=== PATIENT | female | born 1980 | race Caucasian/White ===

== ENCOUNTER 2019-06-27 18:05 | Observation (INO) | payer SELFPAY ==
[~2019-06-27 18:05] MED LIST: ISOVUE-370 76%-LOCM 1 ML ONE
[2019-06-27 18:26] LABS: #Basophils 0.1 thou/uL (0.0-0.2); #Eosinphils 0.7 thou/uL (0.0-0.7); #Lymphocytes 2.3 thou/uL (1.20-3.40); #Monocytes 0.6 thou/uL (0.11-0.59); #Neutrophils 5.3 thou/uL (1.40-6.50); %Basophils 0.9 % (0.0-1.0); %Eosinophils 8.2 % (0.0-10.0); %Lymphocytes 25.4 % (21.0-51.0); %Monocytes 6.5 % (0.0-10.0); Hemoglobin 13.2 g/dL (12.0-16.0); Mean Corpuscular Hemoglobin 26.2 pg (27.0-31.0); Mean Corpuscular Volume 79.4 fL (78.0-98.0); Mean Platelet Volume 7.3 fL (7.4-10.4); Platelet Count 271 thou/uL (130-400); RBC Distribution Width 15.5 % (11.5-14.5); Red Blood Cell (RBC) Count 5.05 mill/uL (4.20-5.40); White Blood Cell (WBC) Count 8.9 thou/uL (4.8-10.8)
[2019-06-27 18:44] LABS: BHCG - Serum Negative (NEGATIVE); Pregs Control Background? CLEAR/WHITE (CLR/WHITE); Pregs Control Bar Appear? YES (CONTROL BAR)
[2019-06-27 18:49] LABS: ALT (SGPT) 9 U/L (8-55); AST (SGOT) 11 U/L (5-34); Albumin 4.1 g/dL (3.5-5.0); Alkaline Phosphatase 72 U/L (40-150); Anion Gap 13 mmol/L (10-20); BUN (Urea Nitrogen) 6 mg/dL (7.0-18.7); Bilirubin, Total 0.2 mg/dL (0.2-1.2); CK (CPK) 39 U/L (29-168); Calc. Creatinine Clearance 0 mL/min (70-130); Calcium 9.2 mg/dL (7.8-10.44); Carbon Dioxide 24 mmol/L (22-29); Chloride 106 mmol/L (98-107); Estimated GFR-MDRD Greater than 90; Globulin 2.8 g/dL (2.4-3.5); Glucose 77 mg/dL (70-105); Potassium 3.6 mmol/L (3.5-5.1); Protein, Total 6.9 g/dL (6.0-8.3); Sodium 139 mmol/L (136-145)
--- NOTE | 2019-06-27 19:45 | RAD ---
PORTABLE CHEST: 06/27/19 PROVIDED CLINICAL HISTORY: Chest pain. FINDINGS: Comparison 04/24/17. Cardiac and mediastinal silhouette is within normal limits. Lungs appear clear. No pleural fluid or p neumothorax apparent. IMPRESSION: No evidence for an acute cardiopulmonary process. POS: GIA
--- NOTE | 2019-06-27 20:07 | CT ---
CT PULMONARY ANGIOGRAM WITH IV CONTRAST WITH 3D MIP RECONSTRUCTIONS: 06/27/19 PROVIDED CLINICAL HISTORY: Tachycardia and chest pain. FINDINGS: There is no evidence for central or segmental pulmonary embolus. Heart, pericardium, and great vessel s demonstrate an unremarkable CT angiographic appearance. The lungs are free of significant opacity. No pleural fluid or pneumothorax apparent. The airway appears patent and of normal caliber. No evidence for thoracic lymph node enlargement. The visualized portions of the upper abdomen appear unremarkable. The osseous structures demonstrate no concerning lytic or blastic lesions. IMPRESSION: No evidence for central or segmental pulmonary embolus. POS: GIA
[2019-06-27 22:05] LABS: Cardiac Risk 3.5 (Less than 4.5)
[2019-06-27 22:11] LABS: Troponin I Less than 0.010 ng/mL (< 0.028)
[2019-06-27] MEDS ORDERED: Acetaminophen 325 MG TAB ONE (22:15)
[2019-06-27 23:18] VITALS: BMI 18.3
[2019-06-27] MEDS ORDERED: Acetaminophen 325 MG TAB PO PRN (23:35)
[2019-06-27] MEDS ORDERED: Aspirin 325 mg Enteric Coated Tablet PO SCH (23:45)
[2019-06-28 00:56] LABS: Troponin I Less than 0.010 ng/mL (< 0.028)
[2019-06-28] MEDS ORDERED: Ondansetron PF 4 MG/2 ML Vial IVP PRN (02:07)
[2019-06-28] MEDS ORDERED: hydrALAZINE 20 MG/ML VIAL SLOW IVP PRN (02:07)
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
[2019-06-28 02:56] LABS: Amphetamine Detected (NotDetected); Barbiturates Screen Not Detected (NotDetected); Benzodiazepine Screen Not Detected (NotDetected); Cocaine Metabolite Screen Not Detected (NotDetected); Medtox Control Line Valid? VALID (VALID); Medtox Reader # READER 1; Methadone Not Detected (NotDetected); Methamphetamine Detected (NotDetected); Opiate Screen Not Detected (NotDetected); Oxycodone Screen Not Detected (NotDetected); Phencyclidine (PCP) Not Detected (NotDetected); THC/Cannabinoid Screen Not Detected (NotDetected); Tricyclic Screen Not Detected (NotDetected)
[2019-06-28 02:57] LABS: Bacteria/HPF None Seen HPF (None Seen); Bilirubin Negative (Negative); Blood, Urine Negative (Negative); Clarity Clear (Clear); Glucose, Urine (Dipstick) Normal (Negative); Leukocyte 25 Leu/uL (Negative); Nitrite 2+ (Negative); Protein, Urine (Dipstick) Negative (Neg-Trace); RBC/HPF 0-3 HPF (0-3); Squamous Epithelial 0-3 HPF (0-3); Urobilinogen Normal mg/dL (Less than 2); WBC/HPF 0-3 HPF (0-3)
[2019-06-28 02:58] LABS: Urine Culture Reflex Yes Yes
[2019-06-28 06:13] LABS: Anion Gap 13 mmol/L (10-20); BUN (Urea Nitrogen) 10 mg/dL (7.0-18.7); Calc. Creatinine Clearance 78 mL/min (70-130); Calcium 9.6 mg/dL (7.8-10.44); Carbon Dioxide 24 mmol/L (22-29); Chloride 106 mmol/L (98-107); Estimated GFR-MDRD Greater than 90; Glucose 96 mg/dL (70-105); Potassium 3.7 mmol/L (3.5-5.1); Sodium 139 mmol/L (136-145)
[2019-06-28] MEDS: Enoxaparin Sodium 40 MG/0.4 ML SYRINGE SC SCH ×2 (08:26→11:08)
[2019-06-28] MEDS: Famotidine 20 MG TAB PO SCH ×3 (08:27→20:36)
[2019-06-28 09:04] LABS: #Basophils 0.1 thou/uL (0.0-0.2); #Eosinphils 0.7 thou/uL (0.0-0.7); #Lymphocytes 2.1 thou/uL (1.20-3.40); #Monocytes 0.5 thou/uL (0.11-0.59); #Neutrophils 4.5 thou/uL (1.40-6.50); %Basophils 0.8 % (0.0-1.0); %Eosinophils 8.9 % (0.0-10.0); %Lymphocytes 26.5 % (21.0-51.0); %Monocytes 5.9 % (0.0-10.0); %Neutrophils 57.8 % (42.0-75.0); Hemoglobin 12.9 g/dL (12.0-16.0); Mean Corpuscular HGB CONC 33.3 g/dL (32.0-36.0); Mean Corpuscular Hemoglobin 26.6 pg (27.0-31.0); Mean Corpuscular Volume 79.9 fL (78.0-98.0); Mean Platelet Volume 7.5 fL (7.4-10.4); Platelet Count 257 thou/uL (130-400); RBC Distribution Width 15.3 % (11.5-14.5); Red Blood Cell (RBC) Count 4.85 mill/uL (4.20-5.40); White Blood Cell (WBC) Count 7.8 thou/uL (4.8-10.8)
[2019-06-28 09:22] LABS: ALT (SGPT) Less than 7 U/L (8-55); AST (SGOT) 13 U/L (5-34); Albumin 3.9 g/dL (3.5-5.0); Alkaline Phosphatase 71 U/L (40-150); Anion Gap 12 mmol/L (10-20); BUN (Urea Nitrogen) 10 mg/dL (7.0-18.7); Bilirubin, Total Less than 0.2 mg/dL (0.2-1.2); Calc. Creatinine Clearance 77 mL/min (70-130); Calcium 9.1 mg/dL (7.8-10.44); Carbon Dioxide 25 mmol/L (22-29); Chloride 106 mmol/L (98-107); Estimated GFR-MDRD Greater than 90; Globulin 2.7 g/dL (2.4-3.5); Glucose 102 mg/dL (70-105); Potassium 3.8 mmol/L (3.5-5.1); Protein, Total 6.6 g/dL (6.0-8.3); Sodium 139 mmol/L (136-145)
--- NOTE | 2019-06-28 12:37 | PDOC.HOSPP ---
- Subjective Encounter Date: 06/28/19 Encounter Time: 10:30 Subjective: Patient examined, reports intermittent sharp chest pain throughout the night, denies new complaints - Objective Vital Signs & Weight: Vital Signs (12 hours) Temp Pulse Resp BP Pulse Ox 06/28/19 08:00 98.4 F 77 16 104/67 100 06/28/19 03:37 98.3 F 69 18 106/56 L 99 Weight Weight 45.541 kg I&O: 06/27/19 06/28/19 06/29/19 06:59 06:59 06:59 Intake Total 240 Output Total 700 Balance -460 Result Diagrams: 06/28/19 08:32 06/28/19 08:32 ROS - Review of Systems Cardiovascular: reports: chest pain - Medication Medications: Active Medications Generic Name Dose Route Start Last Admin Trade Name Freq PRN Reason Stop Dose Admin Enoxaparin Sodium 40 mg 06/28/19 09:00 06/28/19 11:08 Lovenox SC 40 mg 0900 NICO Administration Famotidine 20 mg 06/28/19 09:00 06/28/19 11:08 Pepcid PO 20 mg BID NICO Administration - Exam Eye: PERRL ENT: moist mucosa ENT - other findings: poor dentition Neck: supple Heart: RRR Respiratory: CTAB Gastrointestinal: soft, non-tender Extremities: no edema Skin: normal turgor Neurological: CN's grossly intact Musculoskeletal: normal tone Psychiatric: normal affect, A&O x 3 Hosp A/P (1) Chest pain Code(s): R07.9 - CHEST PAIN, UNSPECIFIED Status: Acute (2) GERD (gastroesophageal reflux disease) Code(s): K21.9 - GASTRO-ESOPHAGEAL REFLUX DISEASE WITHOUT ESOPHAGITIS Status: Chronic (3) Hx of valvular heart disease Code(s): Z86.79 - PERSONAL HISTORY OF OTHER DISEASES OF THE CIRCULATORY SYSTEM Status: Chronic (4) Drug abuse Code(s): F19.10 - OTHER PSYCHOACTIVE SUBSTANCE ABUSE, UNCOMPLICATED Status: Acute - Plan Echocardiogram today May need cardiology consult if Echo abnormal, patient reports hx of valvular d/o , was told 7 years ago she needed a replacement Smoking and drug abuse counseling given Will repeat labs in AM Will discuss with Dr. Potter for further recommendations
[2019-06-28] MEDS: Nitrofurantoin Monohyd/M-Cryst 100 MG CAP PO SCH (20:36)
[2019-06-29 04:47] LABS: #Basophils 0.1 thou/uL (0.0-0.2); #Eosinphils 0.6 thou/uL (0.0-0.7); #Lymphocytes 2.4 thou/uL (1.20-3.40); #Monocytes 0.6 thou/uL (0.11-0.59); #Neutrophils 5.7 thou/uL (1.40-6.50); %Eosinophils 6.3 % (0.0-10.0); %Lymphocytes 25.8 % (21.0-51.0); %Monocytes 5.8 % (0.0-10.0); %Neutrophils 61.1 % (42.0-75.0); Hemoglobin 13.3 g/dL (12.0-16.0); Mean Corpuscular Hemoglobin 26.5 pg (27.0-31.0); Mean Corpuscular Volume 80.3 fL (78.0-98.0); Mean Platelet Volume 7.5 fL (7.4-10.4); Platelet Count 267 thou/uL (130-400); RBC Distribution Width 15.1 % (11.5-14.5); Red Blood Cell (RBC) Count 5.01 mill/uL (4.20-5.40); White Blood Cell (WBC) Count 9.4 thou/uL (4.8-10.8)
[2019-06-29 05:18] LABS: ALT (SGPT) Less than 7 U/L (8-55); AST (SGOT) 12 U/L (5-34); Alkaline Phosphatase 70 U/L (40-150); Anion Gap 11 mmol/L (10-20); BUN (Urea Nitrogen) 9 mg/dL (7.0-18.7); Bilirubin, Total 0.2 mg/dL (0.2-1.2); Calc. Creatinine Clearance 78 mL/min (70-130); Calcium 9.3 mg/dL (7.8-10.44); Carbon Dioxide 25 mmol/L (22-29); Chloride 106 mmol/L (98-107); Estimated GFR-MDRD Greater than 90; Globulin 2.7 g/dL (2.4-3.5); Glucose 99 mg/dL (70-105); Potassium 4.3 mmol/L (3.5-5.1); Protein, Total 6.7 g/dL (6.0-8.3); Sodium 138 mmol/L (136-145)
[2019-06-29 07:40] VITALS: BP 111/65; TEMP 97.7
[2019-06-29] MEDS: Famotidine 20 MG TAB PO SCH (08:56)
[2019-06-29] MEDS: Nitrofurantoin Monohyd/M-Cryst 100 MG CAP PO SCH (08:56)
[2019-06-29] MEDS: Enoxaparin Sodium 40 MG/0.4 ML SYRINGE SC SCH (08:56)
== END 2019-06-29 11:21 | disposition home or self-care (01) ==
LOC: ERS 18:05 → 2SW 20:25
PROVIDERS: ADMIT Family Medicine; ATTEND Family Medicine
DX: R07.89 Other chest pain (principal); I38 Endocarditis, valve unspecified; I51.7 Cardiomegaly; I10 Essential (primary) hypertension; F17.210 Nicotine dependence, cigarettes, uncomplicated; Z88.0 Allergy status to penicillin; Z91.5 Personal history of self-harm
CPT/HCPCS: 36415; 71045; 71275; 80048; 80053; 80061; 80306; 81001; 82550; 84484; 84703; 85025; 87077; 87086; 87186; 93005; 93306; 96372; G0378; J1650; Q9966

== ENCOUNTER 2019-11-12 01:04 | Inpatient (IN) | payer SELFPAY ==
[2019-11-12] MEDS ORDERED: Ondansetron PF 4 MG/2 ML Vial ONE (01:16)
[2019-11-12 01:31] LABS: #Basophils 0.1 thou/uL (0.0-0.2); #Eosinphils 0.6 thou/uL (0.0-0.7); #Lymphocytes 2.9 thou/uL (1.20-3.40); #Monocytes 0.8 thou/uL (0.11-0.59); #Neutrophils 7.9 thou/uL (1.40-6.50); %Eosinophils 5.1 % (0.0-10.0); %Lymphocytes 23.6 % (21.0-51.0); %Monocytes 6.1 % (0.0-10.0); %Neutrophils 64.3 % (42.0-75.0); Hemoglobin 12.4 g/dL (12.0-16.0); Mean Corpuscular HGB CONC 33.4 g/dL (32.0-36.0); Mean Corpuscular Hemoglobin 26.6 pg (27.0-31.0); Mean Corpuscular Volume 79.5 fL (78.0-98.0); Mean Platelet Volume 7.2 fL (7.4-10.4); Platelet Count 283 thou/uL (130-400); RBC Distribution Width 15.2 % (11.5-14.5); Red Blood Cell (RBC) Count 4.67 mill/uL (4.20-5.40); White Blood Cell (WBC) Count 12.2 thou/uL (4.8-10.8)
[2019-11-12 01:38] LABS: BHCG - Serum Negative (NEGATIVE); Pregs Control Background? CLEAR/WHITE (CLR/WHITE); Pregs Control Bar Appear? YES (CONTROL BAR)
[2019-11-12 01:53] LABS: ALT (SGPT) 38 U/L (8-55); AST (SGOT) 76 U/L (5-34); Albumin 4.1 g/dL (3.5-5.0); Alkaline Phosphatase 95 U/L (40-110); Anion Gap 12 mmol/L (10-20); BUN (Urea Nitrogen) 16 mg/dL (7.0-18.7); Bilirubin, Total Less than 0.2 mg/dL (0.2-1.2); Calc. Creatinine Clearance 0 mL/min (70-130); Carbon Dioxide 30 mmol/L (22-29); Chloride 107 mmol/L (98-107); Estimated GFR-MDRD 48; Globulin 2.8 g/dL (2.4-3.5); Glucose 110 mg/dL (70-105); Potassium 4.2 mmol/L (3.5-5.1); Protein, Total 6.9 g/dL (6.0-8.3); Sodium 145 mmol/L (136-145)
[2019-11-12 02:14] LABS: CKMB 2.4 ng/mL (0-6.6)
[2019-11-12 02:39] LABS: Amphetamine Detected (NotDetected); Barbiturates Screen Not Detected (NotDetected); Benzodiazepine Screen Not Detected (NotDetected); Bilirubin Negative (Negative); Blood, Urine Negative (Negative); Clarity Turbid (Clear); Cocaine Metabolite Screen Not Detected (NotDetected); Glucose, Urine (Dipstick) Normal (Negative); Leukocyte 25 Leu/uL (Negative); Medtox Control Line Valid? VALID (VALID); Medtox Reader # READER 4; Methadone Not Detected (NotDetected); Methamphetamine Detected (NotDetected); Nitrite 2+ (Negative); Opiate Screen Not Detected (NotDetected); Oxycodone Screen Not Detected (NotDetected); Phencyclidine (PCP) Not Detected (NotDetected); Protein, Urine (Dipstick) 30 mg/dL (Neg-Trace); RBC/HPF 0-3 HPF (0-3); Squamous Epithelial 0-3 HPF (0-3); THC/Cannabinoid Screen Detected (NotDetected); Tricyclic Screen Not Detected (NotDetected); Urobilinogen Normal mg/dL (Less than 2); WBC/HPF 21-50 HPF (0-3)
[2019-11-12 02:40] LABS: Bacteria/HPF 1+ HPF (None Seen)
[2019-11-12] MEDS ORDERED: Ketorolac Tromethamine 30 MG/ML VIAL ONE (02:47)
[2019-11-12] MEDS ORDERED: Aspirin 325 MG TAB ONE (02:47)
[2019-11-12] MEDS ORDERED: Bisacodyl 10 MG SUPP PR PRN (03:32)
[2019-11-12] MEDS ORDERED: Acetaminophen 325 MG TAB PO PRN (03:32)
[2019-11-12] MEDS ORDERED: Sodium Chloride 0.9% 1,000 ML IV SCH (03:32)
[2019-11-12] MEDS ORDERED: Senokot S 8.6-50 MG TAB PO PRN (03:32)
[2019-11-12] MEDS ORDERED: Guaifenesin DM 100-10/5 ML UDCUP PO PRN (03:32)
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
[2019-11-12 05:12] LABS: Troponin I 0.318 ng/mL (< 0.028)
[2019-11-12] MEDS: Nitroglycerin 2% Ointment 1 INCH/1 GM Packet TOP SCH ×2 (05:55→14:08)
[2019-11-12] MEDS ORDERED: Ciprofloxacin 500 MG TAB ONE (05:57)
[2019-11-12] MEDS: Ciprofloxacin 500 MG TAB PO SCH ×2 (06:00→20:43)
--- NOTE | 2019-11-12 07:35 | RAD ---
EXAM: Single view of the chest HISTORY: Chest pain COMPARISON: 06/27/2019 FINDINGS: Single view of the chest shows a normal sized cardiomediastinal silhouette. There is no alexander dence of consolidation, mass, or pleural effusion. There is a healed right posterior rib fracture. IMPRESSION: No evidence of acute cardiopulmonary disease
[2019-11-12 08:01] LABS: Troponin I 0.271 ng/mL (< 0.028)
[2019-11-12] MEDS ORDERED: Aspirin Chewable 81 MG TAB ONE (08:22)
[2019-11-12] MEDS ORDERED: Famotidine 20 MG TAB ONE (08:22)
[2019-11-12] MEDS ORDERED: Enoxaparin Sodium 40 MG/0.4 ML SYRINGE ONE (08:22)
[2019-11-12] MEDS: Famotidine 20 MG TAB PO SCH ×2 (08:47→20:43)
[2019-11-12] MEDS: Aspirin Chewable 81 MG TAB PO SCH (08:48)
[2019-11-12] MEDS: Enoxaparin Sodium 40 MG/0.4 ML SYRINGE SC SCH (08:49)
[2019-11-12 14:32] VITALS: BMI 18.5
--- NOTE | 2019-11-13 01:38 | CON ---
DATE OF CONSULTATION: 11/12/2019 REASON FOR CONSULTATION: Supraventricular tachycardia. HISTORY OF PRESENT ILLNESS: Ms. Jarvis is a 38-year-old woman. She has been having episodes of tachycardia since age 24. This has happened on multiple occasions. She has had to go to the hospital on multiple occasions and call an ambulance because the rates go so fast, when she tried to take her pulses it is so fast she cannot count it. She has a home blood pressure cuffs, she said it is going so fast it will not register; in an ambulance even an oximeter would not count the number of beats, they are so fast. She has had received medication multiple times en route in an ambulance, apparently adenosine, they converted to normal rhythm. She instantly feels much better. At times, she can rub on her neck and it will convert it or bear down and sometimes it will convert it, but other times, she will not convert, she has to come to the hospital. The patient states that yesterday she had it almost 10 hours before she finally came to the emergency room. It lasted so long. She actually had an increased troponin. The patient otherwise has been in fair condition. Unfortunately, she has had tested multiple times positive for methamphetamines. ALLERGIES: TO PENICILLIN. SOCIAL HISTORY: History of methamphetamine and amphetamine abuse. PHYSICAL EXAMINATION: GENERAL: This is an underweight 38-year-old woman with extremely poor dentition. VITAL SIGNS: Blood pressure is 109/69, pulse 72 and regular. LUNGS: Clear. CARDIAC: Normal S1, normal S2. ABDOMEN: Soft and nontender. EXTREMITIES: Warm and dry. No clubbing or cyanosis. No edema. DIAGNOSTIC STUDIES: EKG now is unremarkable. Recent echocardiogram showed normal left ventricular function, normal echocardiogram. ASSESSMENT: 1. Symptoms typical of supraventricular tachycardia, probably AV juan carlos reentry terminates with vagal maneuvers. By her report, also terminates with medicine given in an ambulance, probably adenosine. 2. History of methamphetamine abuse. PLAN: Discussed with Dr. Medina. Consideration for keep her in the hospital, doing an ablation, she has these episodes frequently. They are incapacitating. Job ID: [id number]
[2019-11-13 05:10] LABS: #Basophils 0.1 thou/uL (0.0-0.2); #Eosinphils 0.6 thou/uL (0.0-0.7); #Lymphocytes 1.9 thou/uL (1.20-3.40); #Monocytes 0.8 thou/uL (0.11-0.59); #Neutrophils 7.4 thou/uL (1.40-6.50); %Basophils 0.8 % (0.0-1.0); %Eosinophils 5.9 % (0.0-10.0); %Lymphocytes 17.6 % (21.0-51.0); %Monocytes 7.2 % (0.0-10.0); %Neutrophils 68.5 % (42.0-75.0); Hemoglobin 10.7 g/dL (12.0-16.0); Mean Corpuscular HGB CONC 31.6 g/dL (32.0-36.0); Mean Corpuscular Hemoglobin 25.4 pg (27.0-31.0); Mean Corpuscular Volume 80.4 fL (78.0-98.0); Mean Platelet Volume 7.7 fL (7.4-10.4); Platelet Count 241 thou/uL (130-400); RBC Distribution Width 15.6 % (11.5-14.5); Red Blood Cell (RBC) Count 4.21 mill/uL (4.20-5.40); White Blood Cell (WBC) Count 10.8 thou/uL (4.8-10.8)
[2019-11-13 05:25] LABS: Anion Gap 8 mmol/L (10-20); BUN (Urea Nitrogen) 12 mg/dL (7.0-18.7); Calc. Creatinine Clearance 85 mL/min (70-130); Carbon Dioxide 27 mmol/L (22-29); Chloride 108 mmol/L (98-107); Estimated GFR-MDRD Greater than 90; Glucose 110 mg/dL (70-105); Sodium 139 mmol/L (136-145)
[2019-11-13 05:31] LABS: Troponin I 0.057 ng/mL (< 0.028)
[2019-11-13] MEDS: Ciprofloxacin 500 MG TAB PO SCH ×2 (06:07→20:42)
[2019-11-13] MEDS: Famotidine 20 MG TAB PO SCH ×2 (08:13→20:42)
[2019-11-13] MEDS: Enoxaparin Sodium 40 MG/0.4 ML SYRINGE SC SCH (08:13)
[2019-11-13] MEDS: Aspirin Chewable 81 MG TAB PO SCH (08:13)
[2019-11-13] MEDS ORDERED: FLU VACC QS2019-20(6MOS UP)/PF 60 MCG/0.5 ML SYRINGE IM ONE (09:00)
--- NOTE | 2019-11-13 14:36 | PDOC.HOSPP ---
- Subjective Encounter Date: 11/13/19 Encounter Time: 14:34 Subjective: Patient feeling well. Denies any complaints. She feels tired but has been up and walking without any sob or chest pain. Per RN frequently going outside to smoke. Patient states she was seen by Dr. Medina this morning and told she would undergo ablation tomorrow. - Objective Vital Signs & Weight: Vital Signs (12 hours) Temp Pulse Resp BP Pulse Ox 11/13/19 08:05 100 11/13/19 07:26 97.7 F 78 20 103/58 L 100 11/13/19 02:59 98 F 77 16 106/59 L 97 Weight Admit Weight 101 lb 3.2 oz Weight 101 lb 3.2 oz I&O: 11/12/19 11/13/19 11/14/19 06:59 06:59 06:59 Intake Total 1242 480 Output Total 1475 Balance -233 480 Result Diagrams: 11/13/19 04:41 11/13/19 04:41 Hospitalist ROS - Review of Systems Constitutional: denies: fever, chills, sweats, weakness, malaise Eyes: denies: pain, vision change, conjunctivae inflammation, eyelid inflammation, redness, other ENT: denies: ear pain, ear discharge, nose pain, nose discharge, nose congestion , mouth pain, mouth swelling, throat pain, throat swelling, other Respiratory: denies: cough, dry, shortness of breath, hemoptysis, SOB with excertion, pleuritic pain, sputum, wheezing, other Cardiovascular: denies: chest pain, palpitations, orthopnea, paroxysmal noc. dyspnea, edema, light headedness, other Gastrointestinal: denies: nausea, vomiting, abdominal pain, diarrhea, constipation, melena, hematochezia, other Genitourinary: denies: dysuria, frequency, incontinence, hematuria, retention, other Musculoskeletal: denies: neck pain, shoulder pain, arm pain, back pain, hand pain, leg pain, foot pain, other Skin: denies: rash, lesions, quin[place], bruising, other Neurological: denies: weakness, numbness, incoordination, change in speech, confusion, seizures, other - Medication Medications: Active Medications Generic Name Dose Route Start Last Admin Trade Name Freq PRN Reason Stop Dose Admin Aspirin 81 mg 11/12/19 09:00 11/13/19 08:13 Aspirin Chewable PO 81 mg DAILY NICO Administration Ciprofloxacin 500 mg 11/12/19 06:00 11/13/19 06:07 Cipro PO 500 mg [id number] [facility] Administration Enoxaparin Sodium 40 mg 11/12/19 09:00 11/13/19 08:13 Lovenox SC 40 mg 0900 NICO Administration Famotidine 20 mg 11/12/19 09:00 11/13/19 08:13 Pepcid PO 20 mg BID NICO Administration - Exam General Appearance: NAD, awake alert Eye: PERRL, anicteric sclera ENT: normocephalic atraumatic ENT - other findings: poor dentition Neck: supple, symmetric, no lymphadenopathy Heart: RRR, no murmur, no gallops, no rubs Respiratory: CTAB, no wheezes, no rales, no ronchi Gastrointestinal: soft, non-tender, non-distended, normal bowel sounds, no guarding, no rigidity Extremities: no cyanosis, no clubbing, no edema Skin: normal turgor, no lesions, no rashes Neurological: cranial nerve grossly intact Musculoskeletal: normal tone, normal strength, no muscle wasting Psychiatric: normal affect, A&O x 3 Hosp A/P (1) SVT (supraventricular tachycardia) Code(s): I47.1 - SUPRAVENTRICULAR TACHYCARDIA Status: Acute (2) Drug abuse Code(s): F19.10 - OTHER PSYCHOACTIVE SUBSTANCE ABUSE, UNCOMPLICATED Status: Chronic (3) GERD (gastroesophageal reflux disease) Code(s): K21.9 - GASTRO-ESOPHAGEAL REFLUX DISEASE WITHOUT ESOPHAGITIS Status: Chronic (4) Hx of valvular heart disease Code(s): Z86.79 - PERSONAL HISTORY OF OTHER DISEASES OF THE CIRCULATORY SYSTEM Status: Chronic - Plan Chest pain resolved. No palpitations at present. Seen by Dr. Medina and for possible ablation tomorrow. Cardiology following as well. Continue cardiac monitoring.
[2019-11-14] MEDS: Ciprofloxacin 500 MG TAB PO SCH ×2 (04:56→19:36)
[2019-11-14 05:35] LABS: #Basophils 0.1 thou/uL (0.0-0.2); #Eosinphils 0.8 thou/uL (0.0-0.7); #Lymphocytes 2.2 thou/uL (1.20-3.40); #Monocytes 0.8 thou/uL (0.11-0.59); #Neutrophils 7.5 thou/uL (1.40-6.50); %Basophils 0.8 % (0.0-1.0); %Eosinophils 7.3 % (0.0-10.0); %Lymphocytes 18.9 % (21.0-51.0); %Monocytes 7.4 % (0.0-10.0); %Neutrophils 65.6 % (42.0-75.0); Mean Corpuscular HGB CONC 31.9 g/dL (32.0-36.0); Mean Corpuscular Hemoglobin 25.7 pg (27.0-31.0); Mean Corpuscular Volume 80.5 fL (78.0-98.0); Mean Platelet Volume 7.9 fL (7.4-10.4); Platelet Count 262 thou/uL (130-400); RBC Distribution Width 15.5 % (11.5-14.5); Red Blood Cell (RBC) Count 4.69 mill/uL (4.20-5.40); White Blood Cell (WBC) Count 11.4 thou/uL (4.8-10.8)
[2019-11-14 05:51] LABS: Anion Gap 9 mmol/L (10-20); BUN (Urea Nitrogen) 16 mg/dL (7.0-18.7); Calc. Creatinine Clearance 78 mL/min (70-130); Calcium 8.9 mg/dL (7.8-10.44); Carbon Dioxide 29 mmol/L (22-29); Chloride 106 mmol/L (98-107); Estimated GFR-MDRD Greater than 90; Glucose 108 mg/dL (70-105); Potassium 4.1 mmol/L (3.5-5.1); Sodium 140 mmol/L (136-145)
[2019-11-14 05:56] LABS: Troponin I 0.041 ng/mL (< 0.028)
[2019-11-14] MEDS: Enoxaparin Sodium 40 MG/0.4 ML SYRINGE SC SCH (08:30)
[2019-11-14] MEDS: Famotidine 20 MG TAB PO SCH ×2 (08:46→19:36)
[2019-11-14] MEDS: Aspirin Chewable 81 MG TAB PO SCH (08:46)
--- NOTE | 2019-11-14 11:24 | PDOC.HOSPP ---
- Subjective Encounter Date: 11/14/19 Encounter Time: 07:10 Subjective: Patient seen and examined. No new complaints. No overnight events - Objective Vital Signs & Weight: Vital Signs (12 hours) Temp Pulse Resp BP Pulse Ox 11/14/19 07:41 98 F 77 20 106/52 L 99 11/14/19 04:45 97.7 F 74 16 108/57 L 98 Weight Admit Weight 101 lb 3.2 oz Weight 101 lb 3.2 oz I&O: 11/13/19 11/14/19 11/15/19 06:59 06:59 06:59 Intake Total 1242 720 Output Total 1475 1000 Balance -233 -280 Result Diagrams: 11/14/19 04:59 11/14/19 04:59 Radiology Reviewed by me: Yes EKG Reviewed by me: Yes Hospitalist ROS - Review of Systems Eyes: denies: pain, vision change, conjunctivae inflammation, eyelid inflammation, redness, other ENT: denies: ear pain, ear discharge, nose pain, nose discharge, nose congestion , mouth pain, mouth swelling, throat pain, throat swelling, other Respiratory: denies: cough, dry, shortness of breath, hemoptysis, SOB with excertion, pleuritic pain, sputum, wheezing, other Cardiovascular: denies: chest pain, palpitations, orthopnea, paroxysmal noc. dyspnea, edema, light headedness, other Gastrointestinal: denies: nausea, vomiting, abdominal pain, diarrhea, constipation, melena, hematochezia, other Genitourinary: denies: dysuria, frequency, incontinence, hematuria, retention, other Musculoskeletal: denies: neck pain, shoulder pain, arm pain, back pain, hand pain, leg pain, foot pain, other - Medication Medications: Active Medications Generic Name Dose Route Start Last Admin Trade Name Freq PRN Reason Stop Dose Admin Aspirin 81 mg 11/12/19 09:00 11/14/19 08:46 Aspirin Chewable PO 81 mg DAILY [facility] Administration Ciprofloxacin 500 mg 11/12/19 06:00 11/14/19 04:56 Cipro PO 500 mg [facility] Administration Enoxaparin Sodium 40 mg 11/12/19 09:00 11/14/19 08:30 Lovenox SC Not Given 899 [facility] Famotidine 20 mg 11/12/19 09:00 11/14/19 08:46 Pepcid PO 20 mg BID NICO Administration - Exam General Appearance: NAD, awake alert Eye: PERRL, anicteric sclera ENT: normocephalic atraumatic, no oropharyngeal lesions Neck: supple, symmetric, no JVD, no thyromegaly Heart: RRR, no murmur, no gallops, no rubs Respiratory: CTAB, no wheezes, no rales Gastrointestinal: soft, non-tender, non-distended, normal bowel sounds Extremities: no cyanosis, no clubbing Skin: normal turgor, no lesions Neurological: no focal deficits Musculoskeletal: normal tone, normal strength Psychiatric: normal affect, normal behavior Hosp A/P (1) Chest pain Code(s): R07.9 - CHEST PAIN, UNSPECIFIED Status: Resolved (2) SVT (supraventricular tachycardia) Code(s): I47.1 - SUPRAVENTRICULAR TACHYCARDIA Status: Acute (3) Type [address] elevation Code(s): I21.A1 - MYOCARDIAL INFARCTION TYPE 2 Status: Acute (4) Polysubstance abuse Code(s): F19.10 - OTHER PSYCHOACTIVE SUBSTANCE ABUSE, UNCOMPLICATED Status: Chronic (5) GERD (gastroesophageal reflux disease) Code(s): K21.9 - GASTRO-ESOPHAGEAL REFLUX DISEASE WITHOUT ESOPHAGITIS Status: Chronic - Plan old records reviewed/req 11/14/19 today possible ablation procedure medication reviewed and continue to provide symptomatic treatment
[2019-11-15] MEDS: Ciprofloxacin 500 MG TAB PO SCH ×2 (05:18→20:52)
[2019-11-15 05:41] LABS: #Basophils 0.1 thou/uL (0.0-0.2); #Lymphocytes 2.5 thou/uL (1.20-3.40); #Neutrophils 7.2 thou/uL (1.40-6.50); %Eosinophils 8.1 % (0.0-10.0); %Lymphocytes 21.5 % (21.0-51.0); %Monocytes 8.1 % (0.0-10.0); %Neutrophils 61.3 % (42.0-75.0); Hemoglobin 12.2 g/dL (12.0-16.0); Mean Corpuscular HGB CONC 31.7 g/dL (32.0-36.0); Mean Corpuscular Hemoglobin 24.9 pg (27.0-31.0); Mean Corpuscular Volume 78.6 fL (78.0-98.0); Mean Platelet Volume 7.9 fL (7.4-10.4); Platelet Count 258 thou/uL (130-400); RBC Distribution Width 15.4 % (11.5-14.5); Red Blood Cell (RBC) Count 4.89 mill/uL (4.20-5.40); White Blood Cell (WBC) Count 11.8 thou/uL (4.8-10.8)
[2019-11-15 06:03] LABS: Anion Gap 13 mmol/L (10-20); BUN (Urea Nitrogen) 15 mg/dL (7.0-18.7); Calc. Creatinine Clearance 75 mL/min (70-130); Calcium 9.1 mg/dL (7.8-10.44); Carbon Dioxide 24 mmol/L (22-29); Chloride 104 mmol/L (98-107); Estimated GFR-MDRD 89; Glucose 99 mg/dL (70-105); Sodium 137 mmol/L (136-145)
[2019-11-15] MEDS: Famotidine 20 MG TAB PO SCH ×2 (07:53→20:52)
[2019-11-15] MEDS: Aspirin Chewable 81 MG TAB PO SCH (07:54)
[2019-11-15] MEDS: Enoxaparin Sodium 40 MG/0.4 ML SYRINGE SC SCH (07:54)
--- NOTE | 2019-11-15 12:13 | PDOC.EP ---
- Subjective Date: 11/15/19 Time: 09:00 Interval History: follow up for recurrent SVT. No further events since Tuesday. Pt feels well. - Review of Systems Constitutional: denies: chills, fever, malaise, sweats, weakness, other Respiratory: denies: cough, dry, hemoptysis, pleuritic pain, shortness of breath , SOB with excertion, sputum, wheezing, other Cardiology: denies: chest pain, edema, heart racing, light headedness, paroxysmal noc. dyspnea, orthopnea, palpitations, passing out, pleuritic pain, pressure, swelling, other Gastrointestinal: denies: abdominal pain, constipation, diarrhea, hematochezia, melena, nausea, vomitting, other Musculoskeletal: denies: unstable gait, falls, neck pain, shoulder pain, arm pain, hand pain, leg pain, foot pain, other Neurological: denies: headache, vision changes, other - Objective Allergies/Adverse Reactions: Allergies Allergy/AdvReac Type Severity Reaction Status Date / Time Penicillins Allergy Verified 11/12/19 13:57 Current Medications Acetaminophen (Tylenol) 650 mg PO Q4H PRN PRN Reason: Headache/Fever/Mild Pain (1-3) Albuterol/Ipratropium (Duoneb) 3 ml NEB [id number] PRN PRN Reason: SOB &/or Wheezing Aspirin (Aspirin Chewable) 81 mg PO DAILY [facility] Last Admin: 11/15/19 07:54 Dose: 81 mg Bisacodyl (Dulcolax) 10 mg TX DAILYPRN PRN PRN Reason: Constipation Ciprofloxacin (Cipro) 500 mg PO 0600,1999 [facility] Last Admin: 11/15/19 05:18 Dose: 500 mg Enoxaparin Sodium (Lovenox) 40 mg SC 0900 [facility] Last Admin: 11/15/19 07:54 Dose: 40 mg Famotidine (Pepcid) 20 mg PO BID [facility] Last Admin: 11/15/19 07:53 Dose: 20 mg Guaifenesin/Dextromethorphan (Robitussin Dm) 15 ml PO Q4H PRN PRN Reason: Cough Senna/Docusate Sodium (Senokot S) 2 tab PO BIDPRN PRN PRN Reason: Constipation Sodium Chloride (Flush - Normal Saline) 10 ml IVF PRN PRN PRN Reason: Saline Flush Vital Signs & Weight: Vital Signs Temp Pulse Resp BP Pulse Ox 11/15/19 11:49 97.3 F L 101 H 20 127/62 100 11/15/19 07:20 98.6 F 81 16 98/54 L 100 11/15/19 05:22 98.0 F 75 16 110/56 L 98 Admit Weight 101 lb 3.2 oz Weight 101 lb 3.2 oz I/O: I/O 11/14/19 11/15/19 11/16/19 06:59 06:59 06:59 Intake Total 720 200 Output Total 1000 Balance -280 200 - Physical Exam General: alert & oriented x3, appears well, no apparent distress, speech clear, affect appropriate HEENT: mucus membranes moist, normocephaly, other (poor dentition) Neck: supple neck, midline trachea, no JVD/HJR, no masses, no bruit, no lymphadenopathy, no thromegaly Cardiology: regular rate and rhythm, no murmur, regular rate, regular rhythm, PMI nondisplaced Lungs: clear to auscultation, normal breath sounds, normal exam, no wheeze, rales, rhonchi, no wheezes, no rales, no rhonchi Neurology: cranial nerve 2-12 intact, grossly intact, motor function intact, sensory function intact, negative rhomberg, coordination normal, no lateralizing findings - Labs Result Diagrams: 11/15/19 05:28 11/15/19 05:28 - EKG Interpretation EKG Method: Telemetry EKG shows: Sinus rhythm - Assessment/Plan Assessment/Plan: 1. 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 History of drug abuse 3. Tobacco habituation, ongoing - recommended she stop. Plan for EP study with possible ablation for SVT tomorrow around noon. Pt gives her consent understanding R/B/U. NPO after MN. Likely ready for DC after recovered from procedure tomorrow.
--- NOTE | 2019-11-15 12:42 | PDOC.HOSPP ---
- Subjective Encounter Date: 11/15/19 Encounter Time: 10:00 Subjective: Patient seen and examined. No new complaints. No overnight events - Objective Vital Signs & Weight: Vital Signs (12 hours) Temp Pulse Resp BP Pulse Ox 11/15/19 11:49 97.3 F L 101 H 20 127/62 100 11/15/19 07:20 98.6 F 81 16 98/54 L 100 11/15/19 05:22 98.0 F 75 16 110/56 L 98 Weight Admit Weight 101 lb 3.2 oz Weight 101 lb 3.2 oz I&O: 11/14/19 11/15/19 11/16/19 06:59 06:59 06:59 Intake Total 720 200 Output Total 1000 Balance -280 200 Result Diagrams: 11/15/19 05:28 11/15/19 05:28 EKG Reviewed by me: Yes Hospitalist ROS - Review of Systems ENT: denies: ear pain, ear discharge, nose pain, nose discharge, nose congestion , mouth pain, mouth swelling, throat pain, throat swelling, other Respiratory: denies: cough, dry, shortness of breath, hemoptysis, SOB with excertion, pleuritic pain, sputum, wheezing, other Cardiovascular: denies: chest pain, palpitations, orthopnea, paroxysmal noc. dyspnea, edema, light headedness, other Gastrointestinal: denies: nausea, vomiting, abdominal pain, diarrhea, constipation, melena, hematochezia, other Genitourinary: denies: dysuria, frequency, incontinence, hematuria, retention, other Musculoskeletal: denies: neck pain, shoulder pain, arm pain, back pain, hand pain, leg pain, foot pain, other - Medication Medications: Active Medications Generic Name Dose Route Start Last Admin Trade Name Freq PRN Reason Stop Dose Admin Aspirin 81 mg 11/12/19 09:00 11/15/19 07:54 Aspirin Chewable PO 81 mg DAILY NICO Administration Ciprofloxacin 500 mg 11/12/19 06:00 11/15/19 05:18 Cipro PO 500 mg 06,1999 NICO Administration Enoxaparin Sodium 40 mg 11/12/19 09:00 11/15/19 07:54 Lovenox SC 40 mg 0900 NICO Administration Famotidine 20 mg 11/12/19 09:00 11/15/19 07:53 Pepcid PO 20 mg BID NICO Administration - Exam General Appearance: NAD, awake alert Eye: PERRL, anicteric sclera ENT: normocephalic atraumatic, no oropharyngeal lesions Neck: supple, symmetric, no JVD, no thyromegaly Heart: RRR, no murmur, no gallops, no rubs Respiratory: CTAB, no wheezes, no rales, no ronchi Gastrointestinal: soft, non-tender, non-distended, normal bowel sounds Extremities: no cyanosis, no clubbing Skin: normal turgor, no lesions Neurological: cranial nerve grossly intact, normal sensation to touch Musculoskeletal: normal tone, normal strength Psychiatric: normal affect, normal behavior Hosp A/P (1) Chest pain Code(s): R07.9 - CHEST PAIN, UNSPECIFIED Status: Resolved (2) SVT (supraventricular tachycardia) Code(s): I47.1 - SUPRAVENTRICULAR TACHYCARDIA Status: Acute (3) Type [address] elevation Code(s): I21.A1 - MYOCARDIAL INFARCTION TYPE 2 Status: Acute (4) Polysubstance abuse Code(s): F19.10 - OTHER PSYCHOACTIVE SUBSTANCE ABUSE, UNCOMPLICATED Status: Chronic (5) GERD (gastroesophageal reflux disease) Code(s): K21.9 - GASTRO-ESOPHAGEAL REFLUX DISEASE WITHOUT ESOPHAGITIS Status: Chronic - Plan old records reviewed/req 11/14/19 today possible ablation procedure medication reviewed and continue to provide symptomatic treatment 11/15/19 ablation postponed to tomorrow medically stable she will finish antibiotic for UTI so she will not need on discharge
[2019-11-16 05:13] LABS: #Basophils 0.1 thou/uL (0.0-0.2); #Eosinphils 1.1 thou/uL (0.0-0.7); #Lymphocytes 2.9 thou/uL (1.20-3.40); #Monocytes 1.1 thou/uL (0.11-0.59); #Neutrophils 7.5 thou/uL (1.40-6.50); %Basophils 0.8 % (0.0-1.0); %Eosinophils 8.6 % (0.0-10.0); %Lymphocytes 22.7 % (21.0-51.0); %Monocytes 8.5 % (0.0-10.0); %Neutrophils 59.5 % (42.0-75.0); Hemoglobin 12.8 g/dL (12.0-16.0); Mean Corpuscular HGB CONC 33.6 g/dL (32.0-36.0); Mean Corpuscular Hemoglobin 26.6 pg (27.0-31.0); Mean Corpuscular Volume 79.1 fL (78.0-98.0); Mean Platelet Volume 8.1 fL (7.4-10.4); Platelet Count 271 thou/uL (130-400); RBC Distribution Width 15.3 % (11.5-14.5); Red Blood Cell (RBC) Count 4.83 mill/uL (4.20-5.40); White Blood Cell (WBC) Count 12.6 thou/uL (4.8-10.8)
[2019-11-16 05:27] LABS: Anion Gap 10 mmol/L (10-20); BUN (Urea Nitrogen) 13 mg/dL (7.0-18.7); Calc. Creatinine Clearance 70 mL/min (70-130); Calcium 9.6 mg/dL (7.8-10.44); Carbon Dioxide 31 mmol/L (22-29); Chloride 102 mmol/L (98-107); Estimated GFR-MDRD 82; Glucose 103 mg/dL (70-105); Potassium 5.1 mmol/L (3.5-5.1); Sodium 138 mmol/L (136-145)
[2019-11-16] MEDS: Ciprofloxacin 500 MG TAB PO SCH (06:17)
[2019-11-16] MEDS: Aspirin Chewable 81 MG TAB PO SCH (08:24)
[2019-11-16] MEDS ORDERED: Heparin (Artline) 500 ML ONE (08:24)
[2019-11-16] MEDS ORDERED: Heparin 10,000 UNITS/1 ML VIAL ONE (08:24)
[2019-11-16] MEDS: Famotidine 20 MG TAB PO SCH (08:25)
[2019-11-16] MEDS: Enoxaparin Sodium 40 MG/0.4 ML SYRINGE SC SCH (08:25)
[2019-11-16] MEDS ORDERED: Fentanyl 100 MCG/2 ML VIAL ONE (08:36)
[2019-11-16] MEDS ORDERED: Ketamine 50 MG/ML (10ML VIAL) ONE (08:36)
[2019-11-16] MEDS ORDERED: Propofol 500 MG/50 ML VIAL ONE (08:36)
[2019-11-16] MEDS ORDERED: Midazolam HCl 2 mg/2 ml Vial ONE (08:36)
[2019-11-16] MEDS ORDERED: Phenylephrine HCL 10 MG/ML VIAL ONE (08:45)
[2019-11-16] MEDS ORDERED: Isoproterenol 0.2 MG/1 ML AMP ONE (09:56)
[2019-11-16] MEDS ORDERED: Promethazine HCl 25 MG/ML VIAL SLOW IVP PRN (11:01)
[2019-11-16] MEDS ORDERED: Promethazine HCl 25 MG/ML VIAL IM PRN (11:01)
[2019-11-16] MEDS ORDERED: Ondansetron HCl/PF 4 MG/2 ML Vial IVP PRN (11:01)
[2019-11-16 12:10] VITALS: BP 109/73; TEMP 98
--- NOTE | 2019-11-16 14:43 | DIS ---
DATE OF ADMISSION: 11/12/2019 DATE OF DISCHARGE: 11/16/2019 ADMISSION DIAGNOSIS: Chest pain associated with supraventricular tachycardia and amphetamine abuse. DISCHARGE DIAGNOSIS: Chest pain associated with supraventricular tachycardia and amphetamine abuse. CREATIVE STRATEGIST: Dr. Aquino and Dr. Medina. PROCEDURES: Chest x-ray, ET with ablation, EKG. COURSE OF HOSPITALIZATION: Uncomplicated, responded well to management. The patient does not express any specific complaint at the current time. Her vital signs are stable. She is being discharged home. She is to follow up with her primary care physician and also with investor relations coordinator. PHYSICAL EXAMINATION: GENERAL: Today, she is alert, oriented, in no distress. VITAL SIGNS: Her latest vital signs show a temperature of 98, pulse rate 77, respiratory rate 20, and blood pressure 109/73. HEAD AND NECK: Normal. HEART: She has regular S1 and S2. LUNGS: Clear. ABDOMEN: Benign. EXTREMITIES: Limbs show no edema. NEUROLOGIC: The patient moves all extremities. Discharge time 31 minutes. Job ID: [id number]
--- NOTE | 2019-11-16 14:51 | OP ---
DATE OF PROCEDURE: 11/16/2019 REASON FOR PROCEDURE: Ms. Jarvis is a 39-year-old woman with history of recurrent supraventricular tachycardia episodes, adenosine strips are unavailable, here for EP study and ablation procedure. DESCRIPTION OF PROCEDURE: The patient received propofol by the sedation. The left femoral venous area was prepped, draped, anesthetized using subcutaneous lidocaine and under ultrasound guidance, femoral veins were cannulated x2 on the left side and x1 on the right side. On the left side, a 6 and 8-Gibraltarian sheath were used to advance an octapolar and decapolar catheter in the right atrium, right ventricle , His bundle, CS position. Pacing, mapping, and recording were performed in each location including pacing left atrium from the CS. Following findings were noted. Baseline rhythm was sinus rhythm at RR interval of 780 msec, WA interval 130 msec, QRS 60 msec, QT 388 msec, HV 45 msec. AV Wenckebach cycle length was 270 msec and retrograde Wenckebach cycle length was 240 msec. AV juan carlos ERP was 600/200 msec. The concentric retrograde VA conduction was seen and the definite dual AV node physiology was not demonstrated. Nonsustained atypical atrial flutter was also seen, which eventually disintegrated atrial fibrillation and then it stopped. During extra stimuli testing, occasionally aberrant ventricular conduction was seen with normal HV interval. At this point, Isuprel was administered and the pacing maneuvers were repeated with up to 6 mcg of Isuprel. There was easily inducible narrow complex supraventricular tachycardia and was induced with very short VA timing about 10 msec was inducible. Attempted ventricular overdrive pacing maneuver failed due to early termination. Due to the short VA timing and termination with a signal, diagnosis AV juan carlos reentrant tachycardia was made and we proceeded placing a right-sided 8-Gibraltarian short sheath through the right femoral vein and a 4 mm standard mapping ablation catheter was advanced to the right atrium. 3D map of the right atrium, especially the Nieves triangle was obtained. His bundle was acutely delineated and the slow pathway area was marked. Following that, the radiofrequency ablation was delivered at 40 [place] with 50 degrees cutoff, total of 8 lesions. Total duration 2 minutes and 51 seconds. During the ablation, junctional escape beats were clearly demonstrated. No AV block was observed. After the ablation sessions, Isuprel was re- administered. Repeated burst atrial maneuver was unable to reinduce the supraventricular tachycardia, which was seen in the baseline at 240 msec cycle length. No additional arrhythmia seen or atrial fibrillation/flutter was seen after ablation. CONCLUSION: 1. 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 2. Successful slow pathway modification eliminating inducibility of AV juan carlos reentrant tachycardia. 3. No evidence of accessory pathway. 4. Normal sinus and AV juan carlos function are seen. Normal His-Purkinje function post ablation. PLAN: Continue monitoring recurrent arrhythmias. Job ID: [id number] [facility]
--- NOTE | 2019-11-19 13:02 | CON ---
DATE OF CONSULTATION: 11/13/2019 REASON FOR CONSULTATION: SVT, consideration for ablation. HISTORY OF PRESENT ILLNESS: This is a 38-year-old woman, who has been having episodes of tachycardia for 15 years. This has happened repeatedly requiring multiple hospitalizations. She reports in the past she has taken some medication only to treat and prevent these episodes with moderate success, but is not currently on any medications. In the past, vasovagal maneuvers and adenosine have been occasionally effective also at stopping these episodes. This time, her episode was lasting 10 hours and she was feeling very poorly, just weakness, and her palpitations. She presented to the emergency room, but reportedly had been given some IV medications that converted her to sinus rhythm. These EKG tracings unfortunately are not available for review. She reports passing out repeatedly in the past when she has had these tachycardic events. REVIEW OF SYSTEMS: A 12-point review of systems is negative except that listed above in HPI. PAST MEDICAL HISTORY: 1. SVT. 2. Methamphetamine and amphetamine abuse. 3. Marijuana use. FAMILY HISTORY: Unremarkable. SOCIAL HISTORY: Positive for drug abuse as mentioned above. Currently, homeless. Denies alcohol use. Positive for tobacco habituation. PHYSICAL EXAMINATION: VITAL SIGNS: Temperature 97.7, pulse 78, blood pressure 103/58, respirations 20, and oxygen 100% on room air. GENERAL: The patient is alert and oriented. Speech is clear. Affect is appropriate. She is in no apparent distress. At the time of exam, resting comfortably in bed. HEENT: She is normocephalic, atraumatic. Sclerae anicteric. EOMs are intact. Oral mucosa is moist and pink with extremely poor dentition. NECK: Supple without jugular venous distention. There is no lymphadenopathy. HEART: Rate is irregularly irregular with crisp S1 and S2. PMI is nondisplaced. LUNGS: Clear to auscultation bilaterally without wheezes, crackles, or rhonchi. Respirations are even and unlabored. ABDOMEN: Soft, nontender without palpable masses. EXTREMITIES: Warm and dry to touch without clubbing, cyanosis, or edema. NEUROLOGIC: Grossly intact and nonfocal. Gait was not assessed. DATABASE: Hematology was unremarkable. Chemistry; troponins were elevated, but peaked at 0.318. Creatinine 0.65. Toxicology positive for methamphetamines and cannabinoids. IMPRESSION: 1. Recurrent supraventricular tachycardia. 2. History of drug abuse. PLAN AND RECOMMENDATIONS: Ms. Jarvis is a pleasant 38-year-old woman, who has struggled with heart racing and palpitations for 15 years. She has returned for a repeat episode. Telemetry EKG since admission shows sinus rhythm without any recurrence of SVT and unfortunately, no EMS tracings were sent with the patient upon admission for review. It is quite possible she is having AVNRT. Ultimately, she requires EP study and possible ablation, so she would also benefit from medical therapy with low-dose beta-blockers as tolerated in the interim. If she remains hospitalized through the holiday, we could consider EP study and ablation on Tuesday. Otherwise, we can have her return as an outpatient for EP study and ablation. We discussed the risks, benefits, and alternatives. I strongly encouraged her that with taking metoprolol that she should absolutely refrain from any cocaine use as well, but she assures me that her years of drug use are long in the past. Thank you for allowing me to participate in the care of this patient. Dictated as scribe by Elen Rodriguez PA-C, for Dr. Medina. Job ID: [id number]
== END 2019-11-16 15:09 | disposition home or self-care (01) | DRG 273 ==
LOC: ERS 01:04 → OBSVTOIN 02:48 → ERHOLD 02:48 → 2SW 13:57
PROVIDERS: ADMIT Internal Medicine; ATTEND Internal Medicine
PROC: 02583ZZ Destruction of Conduction Mechanism, Percutaneous Approach (ICD-10-PCS; principal; 2019-11-12)
PROC: 4A023FZ Measurement of Cardiac Rhythm, Percutaneous Approach (ICD-10-PCS; 2019-11-12)
PROC: 4A0234Z Measurement of Cardiac Electrical Activity, Percutaneous Approach (ICD-10-PCS; 2019-11-12)
PROC: 02K83ZZ Map Conduction Mechanism, Percutaneous Approach (ICD-10-PCS; 2019-11-12)
DX: I47.1 Supraventricular tachycardia (principal); I21.A1 Myocardial infarction type 2; N39.0 Urinary tract infection, site not specified; R07.89 Other chest pain; F15.10 Other stimulant abuse, uncomplicated; F17.200 Nicotine dependence, unspecified, uncomplicated; K21.9 Gastro-esophageal reflux disease without esophagitis; Z90.49 Acquired absence of other specified parts of digestive tract; Z91.5 Personal history of self-harm; Z88.0 Allergy status to penicillin; Z86.79 Personal history of other diseases of the circulatory system
CPT/HCPCS: 36415; 71045; 80048; 80053; 80306; 81003; 81015; 82553; 84484; 84703; 85025; 93005; 93613; 93623; 93653; 96361; 96374; 96375; 99406; C1730; C1732; C1769; J1644; J1650; J1885; J2250; J2370; J2405; J2704; J3010

== ENCOUNTER 2020-01-14 15:06 | Emergency (ER) | payer SELFPAY ==
[2020-01-14 15:31] LABS: #Basophils 0.1 thou/uL (0.0-0.2); #Monocytes 0.5 thou/uL (0.11-0.59); #Neutrophils 6.1 thou/uL (1.40-6.50); %Basophils 0.7 % (0.0-1.0); %Lymphocytes 21.1 % (21.0-51.0); %Monocytes 5.3 % (0.0-10.0); %Neutrophils 62.9 % (42.0-75.0); Hemoglobin 12.5 g/dL (12.0-16.0); Mean Corpuscular HGB CONC 32.8 g/dL (32.0-36.0); Mean Corpuscular Hemoglobin 25.8 pg (27.0-31.0); Mean Corpuscular Volume 78.7 fL (78.0-98.0); Mean Platelet Volume 8.4 fL (7.4-10.4); Platelet Count 212 thou/uL (130-400); RBC Distribution Width 15.6 % (11.5-14.5); Red Blood Cell (RBC) Count 4.83 mill/uL (4.20-5.40); White Blood Cell (WBC) Count 9.6 thou/uL (4.8-10.8)
--- NOTE | 2020-01-14 15:38 | RAD ---
PA CHEST: Indications: Chest pain FINDINGS: The lungs are clear. Heart and mediastinum appear normal. The vascular markings are normal. Deformity of the right ribs, consistent with old fracture, appears stable when compared to prior exam of 11-12. IMPRESSION: No acute abnormality. POS: C
[2020-01-14 15:51] LABS: ALT (SGPT) 7 U/L (8-55); AST (SGOT) 15 U/L (5-34); Albumin 4.4 g/dL (3.5-5.0); Alkaline Phosphatase 75 U/L (40-110); Anion Gap 11 mmol/L (10-20); BUN (Urea Nitrogen) 13 mg/dL (7.0-18.7); Bilirubin, Total 0.2 mg/dL (0.2-1.2); Calc. Creatinine Clearance 0 mL/min (70-130); Calcium 9.4 mg/dL (7.8-10.44); Carbon Dioxide 29 mmol/L (22-29); Chloride 103 mmol/L (98-107); Estimated GFR-MDRD 81; Globulin 2.6 g/dL (2.4-3.5); Glucose 106 mg/dL (70-105); Potassium 4.2 mmol/L (3.5-5.1); Sodium 139 mmol/L (136-145)
[2020-01-14 17:29] LABS: Bilirubin Negative (Negative); Blood, Urine Negative (Negative); Clarity Clear (Clear); Glucose, Urine (Dipstick) Normal (Negative); Leukocyte Negative Leu/uL (Negative); Nitrite Negative (Negative); Protein, Urine (Dipstick) Negative (Neg-Trace); Urobilinogen Normal mg/dL (Less than 2)
== END 2020-01-14 18:09 | disposition home or self-care (01) ==
LOC: ERS 15:06
DX: R07.89 Other chest pain (principal); I49.9 Cardiac arrhythmia, unspecified; K21.9 Gastro-esophageal reflux disease without esophagitis; F31.9 Bipolar disorder, unspecified; F17.210 Nicotine dependence, cigarettes, uncomplicated; I47.1 Supraventricular tachycardia
CPT/HCPCS: 36415; 71045; 80053; 81003; 84484; 85025; 93005

== ENCOUNTER 2022-07-24 03:13 | Emergency (ER) | payer SELFPAY ==
[2022-07-24 03:49] LABS: #Basophils 0.1 thou/uL (0.0-0.2); #Lymphocytes 2.3 thou/uL (1.20-3.40); #Monocytes 0.6 thou/uL (0.11-0.59); #Neutrophils 5.9 thou/uL (1.40-6.50); %Basophils 1.1 % (0.0-1.0); %Eosinophils 9.7 % (0.0-10.0); %Lymphocytes 23.4 % (21.0-51.0); %Monocytes 6.2 % (0.0-10.0); %Neutrophils 59.6 % (42.0-75.0); Hemoglobin 12.7 g/dL (12.0-16.0); Mean Corpuscular HGB CONC 32.4 g/dL (32.0-36.0); Mean Corpuscular Hemoglobin 25.8 pg (27.0-31.0); Mean Corpuscular Volume 79.5 fL (78.0-98.0); Mean Platelet Volume 8.1 fL (7.4-10.4); Platelet Count 233 thou/uL (130-400); RBC Distribution Width 14.2 % (11.5-14.5); Red Blood Cell (RBC) Count 4.93 mill/uL (4.20-5.40); White Blood Cell (WBC) Count 9.9 thou/uL (4.8-10.8)
[2022-07-24 04:10] LABS: ALT (SGPT) 8 U/L (8-55); AST (SGOT) 16 U/L (5-34); Albumin 4.4 g/dL (3.5-5.0); Alkaline Phosphatase 73 U/L (40-110); Anion Gap 12 mmol/L (10-20); BUN (Urea Nitrogen) 9 mg/dL (7.0-18.7); Bilirubin, Total 0.2 mg/dL (0.2-1.2); Calc. Creatinine Clearance 0 mL/min (70-130); Calcium 8.8 mg/dL (7.8-10.44); Carbon Dioxide 25 mmol/L (22-29); Chloride 107 mmol/L (98-107); Estimated GFR 95; Globulin 2.7 g/dL (2.4-3.5); Glucose 85 mg/dL (70-105); Lipase 31 U/L (8-78); Protein, Total 7.1 g/dL (6.0-8.3); Sodium 140 mmol/L (136-145)
[2022-07-24] MEDS ORDERED: Aspirin Chewable 81 MG TAB ONE (07:35)
[2022-07-24] MEDS ORDERED: Acetaminophen 500 MG TAB ONE (07:35)
== END 2022-07-24 08:30 | disposition home or self-care (01) ==
LOC: ERS 03:13
DX: R07.9 Chest pain, unspecified (principal); F17.210 Nicotine dependence, cigarettes, uncomplicated
CPT/HCPCS: 36415; 71045; 80053; 83690; 84484; 85025; 93005